=== PATIENT | female | born 1990 | race Two or more races ===

== ENCOUNTER 2020-11-11 19:57 | Emergency (ER) | payer MEDICAID, OTHER ==
[~2020-11-11] VITALS: Ht 157.5 cm; Wt 74.8 kg
[2020-11-11] MEDS ORDERED: fentaNYL CITRATE 100 MCG/2 ML VL IV ONE ×2 (20:15→22:00)
[2020-11-11] MEDS ORDERED: KETOROLAC TROMETH 30 MG/ML 1ML VIAL IV ONE ×2 (20:15→22:00)
[2020-11-11 21:58] VITALS: BP 132/67
[2020-11-12] MEDS ORDERED: ACETAMINOPHEN 325 MG TAB PO ONE
== END 2020-11-12 00:22 | disposition left against medical advice (07) ==
LOC: EDBD 19:57 → ER 19:57
DX: S52.201A Unspecified fracture of shaft of right ulna, initial encounter for closed fracture (principal); S52.301A Unspecified fracture of shaft of right radius, initial encounter for closed fracture; T79.A11A Traumatic compartment syndrome of right upper extremity, initial encounter; W18.2XXA Fall in (into) shower or empty bathtub, initial encounter; Y93.89 Activity, other specified; Y92.89 Other specified places as the place of occurrence of the external cause; Y99.8 Other external cause status
CPT/HCPCS: 29125; 96374; 96375; 96376; 99285; J1885; J3010